=== PATIENT | male | born 1995 | race Caucasian/White ===

== ENCOUNTER 2018-02-20 22:13 | Emergency (ER) | payer OTHER ==
[2018-02-20] MEDS ORDERED: Mupirocin 2% OINT* TUBE TOPICAL ONE (23:39)
--- NOTE | 2018-02-20 23:39 | ED ---
Burn - HPI Summary HPI Summary: 23-year-old male presents with sunburn for the past 2 days. He states he is applying aloe to the area. He started to have a burning pain to the area tonight He denies any injuries to the area. No fevers. Has been able to drink liquids. No dizziness. No spreading redness. No new products or soaps. Has not taking anything for pain. He has no medical conditions. - History of Current Complaint Chief Complaint: EDRashSkinAbscess Stated Complaint: SUNBURN Time Seen by Provider: 02/20/18 23:21 Pain Intensity: 6 - Allergy/Home Medications Allergies/Adverse Reactions: Allergies Allergy/AdvReac Type Severity Reaction Status Date / Time No Known Allergies Allergy Verified 12/10/16 15:14 PMH/Surg Hx/FS Hx/Imm Hx Endocrine/Hematology History: Denies: Hx Anticoagulant Therapy, Hx Diabetes Cardiovascular History: Denies: Hx Hypertension Infectious Disease History: No Infectious Disease History: Denies: Traveled Outside the [place] in Last 30 Days - Family History Known Family History: Negative: Diabetes - Social History Alcohol Use: None Substance Use Type: Reports: None Smoking Status (MU): Never Smoked Tobacco Review of Systems Negative: Fever Negative: Chest Pain Negative: Shortness Of Breath Negative: Vomiting Positive: Other - sunburn All Other Systems Reviewed And Are Negative: Yes Physical Exam Triage Information Reviewed: Yes Vital Signs On Initial Exam: Initial Vitals Temp Pulse Resp BP Pulse Ox 98 F 80 20 128/68 96 02/20/18 22:14 02/20/18 22:14 02/20/18 22:14 02/20/18 22:14 02/20/18 22:14 Vital Signs Reviewed: Yes Appearance: Positive: Well-Appearing Skin: Positive: Warm, Dry, Other - 1st degree burn to upper chest and back and side of lower back, no blistering Head/Face: Positive: Normal Head/Face Inspection Eyes: Positive: Normal, Conjunctiva Clear ENT: Positive: Pharynx normal Respiratory/Lung Sounds: Positive: Clear to Auscultation, Breath Sounds Present Cardiovascular: Positive: Normal, RRR Musculoskeletal: Positive: Normal Neurological: Positive: Normal Psychiatric: Positive: Normal Burn Calculation - Trunk / Ant. 18% Trunk / Ant. % 1st De - Trunk / Post. 18% Trunk /Post. 1st De - Total 1st Deg Total: 15 Total % BSA: 15 - [place] Formula for Fluid Resuscitation Weight: 230 lb 24 -Hour Fluid Replacement: 0.0 Diagnostics - Vital Signs Vital Signs Temp Pulse Resp BP Pulse Ox 02/20/18 22:14 98 F 80 20 128/68 96 - Laboratory Lab Statement: Any lab studies that have been ordered have been reviewed, and results considered in the medical decision making process. Burn Course/Dx - Course Course Of Treatment: 23-year-old male presents with sunburn for the past 2 days. He states he is applying aloe to the area. He started to have a burning pain to the area tonight He denies any injuries to the area. No fevers. Has been able to drink liquids. No dizziness. No spreading redness. No new products or soaps. Has not taking anything for pain. He has no medical conditions. On exam has first-degree burn to anterior chest and posterior chest and sides of lower back. no signs of cellulitis. we'll treat with bactroban continued aloe and calamine lotion. told to take ibuprofen for pain. patient understands and agrees plan. - Diagnoses Differential Diagnoses: Positive: Direct Contact Thermal Burn, Ultraviolet Burn Provider Diagnosis: Sunburn Discharge - Sign-Out/Discharge Documenting (check all that apply): Discharge/Admit/Transfer - Discharge Plan Condition: Good Disposition: HOME Patient Education Materials: Sunburn (ED) Referrals: Kourtney Little MD [Primary Care Provider] - Additional Instructions: Apply bactroban twice a day Alternate calamine lotion and aloe Take ibuprofen every 6 hours for pain Use cool compresses Return to ED if develop any new or worsening symptoms - Billing Disposition and Condition Condition: GOOD Disposition: Home
[2018-02-21 00:21] VITALS: BP 123/79
== END 2018-02-21 00:20 | disposition home or self-care (01) ==
LOC: ED 22:13
DX: L55.9 Sunburn, unspecified (principal)
CPT/HCPCS: 99282